=== PATIENT | female | born 1930 | race Caucasian/White ===

== ENCOUNTER 2016-11-19 05:10 | Inpatient (IN) ==
[2016-11-14 14:04] LABS: Appearance,Urine CLEAR; Bilirubin,Urine NEG (NEG); Color,Urine STRAW; Glucose,Urine (UA) NEGATIVE (NEG); Leukocyte Esterase,Urine NEG /uL (NEG); Nitrate,Urine NEG (NEG); Protein,Urine NEG (NEG); Urine Blood NEG mg/dL (<0.03); Urobilinogen,Urine NEG (NEG)
[2016-11-14 14:24] LABS: Basophils # (Auto) 0 K/mcL (0.0-0.3); Basophils % (Auto) 0.3 % (0.0-2.0); Eosinophils # (Auto) 0.2 K/mcL (0.0-0.7); Eosinophils % (Auto) 2.7 % (0.0-7.0); Granulocytes % (Auto) 71.7 % (38.0-78.0); Lymphocytes # (Auto) 1.5 K/mcL (1.5-4.8); Lymphocytes % (Auto) 16.9 % (15.5-49.0); Mean Cell Volume 94.3 fL (80.0-100.0); Mean Corpuscular HGB Conc 32.8 g/dL (31.0-36.0); Mean Corpuscular Hemoglobin 30.9 pg (26.0-34.0); Monocytes # (Auto) 0.8 K/mcL (0.1-0.9); Monocytes % (Auto) 8.4 % (1.0-12.0); Platelet Count 309 K/mcL (140-440); RBC 4.63 M/mcL (4.00-5.20); Red Cell Distribution Width 14.7 % (11.5-14.5)
[2016-11-14 14:39] LABS: Blood Urea Nitrogen 35 mg/dl (8-23)
[~2016-11-19 05:10] MED LIST: CELECOXIB 200 MG CAPSULE PO SCH; PREGABALIN 75 MG CAPSULE PO SCH; ceFAZolin 1 GM VIAL IV SCH; oxyCODONE 10 MG TAB.ER.12H PO SCH
[2016-11-19] MEDS ORDERED: ePHEDrine 50 MG/ML AMPUL IV ONE (07:35)
[2016-11-19] MEDS ORDERED: PROPOFOL 200 MG/20 ML VIAL IV ONE (07:35)
[2016-11-19] MEDS ORDERED: ONDANSETRON 4 MG/2 ML VIAL IV ONE (07:35)
[2016-11-19] MEDS ORDERED: TRANEXAMIC ACID 1,000 MG/10 ML VIAL IV ONE (07:35)
[2016-11-19] MEDS ORDERED: PHENYLEPHRINE 10 MG/ML VIAL IV ONE (07:35)
[2016-11-19] MEDS ORDERED: ONDANSETRON 4 MG/2 ML VIAL IV PRN ×2 (08:39→09:19)
[2016-11-19] MEDS ORDERED: BENZOCAINE/MENTHOL 1 LOZENGE PO PRN ×2 (08:39→09:19)
[2016-11-19] MEDS ORDERED: ePHEDrine 50 MG/ML AMPUL IV PRN (08:39)
[2016-11-19] MEDS ORDERED: diphenhydrAMINE 50 MG/ML VIAL IV PRN (08:39)
[2016-11-19] MEDS ORDERED: NALOXONE HCL 0.4 MG/ML VIAL IV PRN (08:39)
[2016-11-19] MEDS ORDERED: IPRATROPIUM/ALBUTEROL 3 ML AMPUL.NEB NEB PRN (08:39)
[2016-11-19] MEDS ORDERED: FLUMAZENIL 0.1 MG/ML ML IV PRN (08:39)
[2016-11-19] MEDS ORDERED: METOPROLOL TARTRATE 5 MG/5 ML VIAL IV PRN (08:39)
[2016-11-19] MEDS ORDERED: METHOCARBAMOL 1,000 MG/10 ML VIAL IV PRN (08:39)
[2016-11-19] MEDS ORDERED: GENTAMICIN SULFATE 800 MG/20 ML VIAL IR ONE (08:39)
[2016-11-19] MEDS ORDERED: ATROPINE SULFATE 0.4 MG/ML VIAL IV PRN (08:39)
[2016-11-19] MEDS ORDERED: HYDROmorphone 2 MG/ML SYRINGE IV PRN ×2 (08:39→09:19)
[2016-11-19] MEDS ORDERED: LACTATED RINGERS 1,000 ML IV SCH (08:45)
[2016-11-19] MEDS ORDERED: MAGNESIUM HYDROXIDE 30 ML ORAL.SUSP PO PRN (09:19)
[2016-11-19] MEDS ORDERED: POLYETHYLENE GLYCOL 3350 17 GM PACKET PO PRN (09:19)
[2016-11-19] MEDS ORDERED: FLEETS ADULT ENEMA PR PRN (09:19)
[2016-11-19] MEDS ORDERED: TRANEXAMIC ACID 1,000 MG/10 ML VIAL IV SCH (09:19)
[2016-11-19] MEDS ORDERED: BISACODYL 10 MG SUPP.RECT PR PRN (09:19)
[2016-11-19] MEDS ORDERED: METHOCARBAMOL 750 MG TABLET PO PRN (09:19)
--- NOTE | 2016-11-19 09:19 | Brief Operative Note ---
Date of procedure: 11/19/16 Pre-op diagnosis: right hip oa Post-op diagnosis: same Procedure: right total hip arthroplasty Grafts/Implants: Yes Anesthesia: spinal Complications: none Surgeon: Nick Bowman Gas Regulator Repairer: Pj Ayoub Estimated blood loss (cc): 150 Specimens Removed/Pathology: none sent Condition: stable Disposition: PACU
[2016-11-19] MEDS: fentaNYL 100 MCG/2 ML VIAL IV PRN ×4 (09:59→10:17)
[2016-11-19] MEDS: LACTATED RINGERS 1,000 ML IV SCH ×2 (10:54→17:06)
--- NOTE | 2016-11-19 11:45 | XRay Report ---
CLINICAL INFORMATION: Reason for Exam:Post-op Total Hip COMPARISON: None. FINDINGS: ] [Right total hip prostheses is anatomically aligned. No osseous abnormalities. Left hip and both SI joints show minimal degeneration. IMPRESSION: Negative Interpreted and Authenticated by: Nick Wade 11/19/16
[2016-11-19] MEDS: 0.9 % SODIUM CHLORIDE 1,000 ML IV SCH ×2 (11:57→17:55)
[2016-11-19] MEDS: 0.9 % SODIUM CHLORIDE 10 ML SYRINGE IV SCH ×2 (13:57→23:14)
[2016-11-19] MEDS: ceFAZolin 1 GM VIAL IV SCH ×2 (15:27→23:13)
[2016-11-19] MEDS: OMEPRAZOLE 20 MG CAPSULE PO SCH (17:05)
[2016-11-19] MEDS: DOCUSATE SODIUM 100 MG CAPSULE PO SCH (19:37)
[2016-11-19] MEDS: FLECAINIDE 50 MG TABLET PO SCH (19:37)
[2016-11-19] MEDS: HYDROcodone/APAP 10/325MG TABLET PO PRN ×2 (19:37→23:14)
[2016-11-19] MEDS: SENNOSIDES 1 TABLET PO SCH (19:37)
[2016-11-19] MEDS: METOPROLOL TARTRATE 50 MG TABLET PO SCH (19:37)
[2016-11-19] MEDS ORDERED: WARFARIN 2.5 MG TABLET PO SCH (21:00)
[2016-11-20] MEDS: 0.9 % SODIUM CHLORIDE 1,000 ML IV SCH ×3 (03:11→17:34)
[2016-11-20] MEDS: HYDROcodone/APAP 10/325MG TABLET PO PRN ×3 (05:36→21:48)
[2016-11-20] MEDS: 0.9 % SODIUM CHLORIDE 10 ML SYRINGE IV SCH ×3 (05:38→21:48)
--- NOTE | 2016-11-20 06:58 | Orthopedic Progress Note ---
Subjective Patient information: Note initiated : 11/20/16 at 6:56 am Service Date, if different from initiated Date: [] Patient: Taniya Reynoso 86 y/o F admitted on 11/19/16 for Right Total Hip Arthroplasty. Chief Complaint: [] Interval history: Doing well, up to the bathroom. pain ok Objective Vital signs: Vital Signs Temp Pulse Resp BP BP Pulse Ox 11/20/16 04:00 97.6 F 66 12 104/65 92 11/20/16 00:00 97.7 F 64 12 89/55 92 11/19/16 19:43 98.2 F 68 12 95/60 91 11/19/16 15:21 98.0 F 16 95 11/19/16 13:20 111/64 97 11/19/16 12:32 111/68 96 11/19/16 12:19 104/60 96 11/19/16 12:04 98/47 97 11/19/16 11:47 101/69 96 11/19/16 11:32 114/75 96 11/19/16 11:15 104/70 96 11/19/16 10:45 109/71 97 11/19/16 10:30 97.6 F 16 107/60 99 11/19/16 10:26 55 L 12 116/53 99 11/19/16 10:15 54 L 12 116/53 99 11/19/16 10:00 57 L 12 116/53 92 11/19/16 09:43 96.9 F L 60 16 117/59 98 Intake and Output 11/19/16 11/20/16 11/20/16 21:59 05:59 13:59 Intake Total 120 / 120 200 / 200 Output Total 250 / 250 Balance 120 / 120 -50 / -50 Intake: Oral 120 / 120 200 / 200 Output: Void Amount 250 / 250 Other: Meal Dinner Percent of Meal Consumed 75% Feeding Ability Independent # Voids 1 Weight 210 lb 8 oz Intake & Output: Intake & Output 11/19/16 11/20/16 11/20/16 21:59 05:59 13:59 Intake Total 120 / 120 200 / 200 Output Total 250 / 250 Balance 120 / 120 -50 / -50 Weight 210 lb 8 oz Intake: Oral 120 / 120 200 / 200 Output: Void Amount 250 / 250 Other: Meal Dinner Percent of Meal Consumed 75% Feeding Ability Independent # Voids 1 Incision: Yes healing Incision clean and dry: Yes Dressing: Yes clean, Yes dry, Yes intact Weight bearing status: full Neurological exam IM: Yes abnormal gait, Yes alert, Yes oriented X3, Yes motor sensory intact, Yes neurovascular intact Extremities exam IM: No calf tenderness, Yes Foot pink and warm, Yes neurovascular intact - Labs CBC & BMP: 11/20/16 05:20 11/14/16 12:23 Labs: Orthopedic Labs 11/19/16 11/14/16 05:24 12:23 PT 17.8 H 32.0 H INR 1.4 H 3.0 H 11/20/16 11/14/16 05:20 12:23 Hgb 10.8 L 14.3 Hct 31.8 L 43.7 Assessment and Plan (1) Hip osteoarthritis Assessment: pod 1 s/p right nahomy Plan: PT pain control dvt prophylaxis - coumadin (lovenox bridge) dressing change tomorrow d/c plan - rehab friday Status: Acute
[2016-11-20] MEDS: OMEPRAZOLE 20 MG CAPSULE PO SCH ×2 (07:09→16:47)
[2016-11-20] MEDS: LEVOTHYROXINE SODIUM 112 MCG TABLET PO SCH (07:09)
[2016-11-20] MEDS ORDERED: DOCUSATE SODIUM 100 MG CAPSULE PO SCH (09:00)
[2016-11-20] MEDS: SPIRONOLACTONE 25 MG TABLET PO SCH (09:09)
[2016-11-20] MEDS: ESCITALOPRAM 10 MG TABLET PO SCH (09:10)
[2016-11-20] MEDS: METOPROLOL TARTRATE 50 MG TABLET PO SCH ×3 (09:10→21:47)
[2016-11-20] MEDS: FUROSEMIDE 40 MG TABLET PO SCH (09:10)
[2016-11-20] MEDS: FLECAINIDE 50 MG TABLET PO SCH ×2 (09:10→21:48)
[2016-11-20] MEDS: ENOXAPARIN 40 MG/0.4 ML SYRINGE SQ SCH (09:10)
[2016-11-20] MEDS: DOCUSATE SODIUM 100 MG CAPSULE PO SCH ×2 (09:10→21:48)
[2016-11-20] MEDS: CHLORTHALIDONE 25 MG TABLET PO SCH (09:36)
[2016-11-20] MEDS ORDERED: WARFARIN 5 MG TABLET PO SCH (14:00)
[2016-11-20] MEDS: SENNOSIDES 1 TABLET PO SCH (21:47)
[2016-11-21] MEDS: 0.9 % SODIUM CHLORIDE 1,000 ML IV SCH (01:53)
[2016-11-21] MEDS: HYDROcodone/APAP 10/325MG TABLET PO PRN (06:13)
[2016-11-21] MEDS: 0.9 % SODIUM CHLORIDE 10 ML SYRINGE IV SCH ×3 (06:13→21:50)
--- NOTE | 2016-11-21 06:18 | Orthopedic Progress Note ---
Subjective Patient information: Note initiated : 11/21/16 at 6:17 am Service Date, if different from initiated Date: [] Patient: Taniya Reynoso 86 y/o F admitted on 11/19/16 for Right Total Hip Arthroplasty. Chief Complaint: [] Interval history: doing well. pain under control. mobilizing Objective Vital signs: Vital Signs Temp Pulse Resp BP Pulse Ox 11/21/16 04:00 97.7 F 70 20 107/60 94 11/20/16 23:41 97.3 F 74 20 101/60 94 11/20/16 20:00 97.2 F 78 16 108/68 94 11/20/16 11:00 97.6 F 12 97/58 93 11/20/16 07:33 97.1 F 12 95/58 93 Intake and Output 11/20/16 11/21/16 11/21/16 21:59 05:59 13:59 Intake Total 240 / 240 Output Total 50 / 50 Balance -50 / -50 240 / 240 Intake: Oral 240 / 240 Output: Void Amount 50 / 50 Other: # Voids 1 Weight 215 lb Intake & Output: Intake & Output 11/20/16 11/21/16 11/21/16 21:59 05:59 13:59 Intake Total 240 / 240 Output Total 50 / 50 Balance -50 / -50 240 / 240 Weight 215 lb Intake: Oral 240 / 240 Output: Void Amount 50 / 50 Other: # Voids 1 Incision: Yes healing Incision clean and dry: Yes Dressing: Yes clean, Yes dry, Yes intact Weight bearing status: full Neurological exam IM: Yes alert, Yes normal gait, Yes oriented X3, Yes motor sensory intact, Yes neurovascular intact Extremities exam IM: No calf tenderness, Yes Foot pink and warm, Yes neurovascular intact - Labs CBC & BMP: 11/21/16 03:41 11/14/16 12:23 Labs: Orthopedic Labs 11/20/16 11/19/16 11/14/16 07:20 05:24 12:23 PT 17.4 H 17.8 H 32.0 H INR 1.4 H 1.4 H 3.0 H 11/21/16 11/20/16 11/14/16 03:41 05:20 12:23 Hgb 10.2 L 10.8 L 14.3 Hct 29.9 L 31.8 L 43.7 Assessment and Plan (1) Hip osteoarthritis Assessment: pod 2 s/p right nahomy Plan: PT pain control dvt prophylaxis - coumadin (lovenox bridge) dressing change tomorrow d/c plan - rehab friday Status: Acute
--- NOTE | 2016-11-21 06:24 | Discharge Summary ---
Ortho Discharge - [facility] - Patient Instructions Diet: Regular Diet Activity: ambulate with assistive device, weight bearing as tolerated Total Hip Protocol: Follow activity instructions as provided by Physical Therapy. Dressing Care: May shower in 2 days - Problem Maintenance (1) Hip osteoarthritis Status: Acute - Follow Up Plan Disposition: [facility] Prognosis: Good Rehab Potential: Good Overall status at discharge: patient is progressing back to baseline - Orders For Discharge Prescriptions: Docusate Sodium [Colace] 100 mg PO BID #60 capsule HYDROcodone/APAP 10/325MG [[place] 10/325Mg] 1 - 2 tab PO Q4HP PRN #60 tablet PRN Reason: Pain
[2016-11-21] MEDS: LEVOTHYROXINE SODIUM 112 MCG TABLET PO SCH (07:05)
[2016-11-21] MEDS: OMEPRAZOLE 20 MG CAPSULE PO SCH ×2 (07:05→16:41)
[2016-11-21] MEDS: FLECAINIDE 50 MG TABLET PO SCH ×2 (09:39→21:50)
[2016-11-21] MEDS: CHLORTHALIDONE 25 MG TABLET PO SCH (09:39)
[2016-11-21] MEDS: METOPROLOL TARTRATE 50 MG TABLET PO SCH ×2 (09:40→21:50)
[2016-11-21] MEDS: DOCUSATE SODIUM 100 MG CAPSULE PO SCH ×2 (09:40→21:50)
[2016-11-21] MEDS: ENOXAPARIN 40 MG/0.4 ML SYRINGE SQ SCH (09:40)
[2016-11-21] MEDS: ESCITALOPRAM 10 MG TABLET PO SCH (09:40)
[2016-11-21] MEDS: SPIRONOLACTONE 25 MG TABLET PO SCH (09:40)
[2016-11-21] MEDS: FUROSEMIDE 40 MG TABLET PO SCH (09:41)
[2016-11-21] MEDS ORDERED: WARFARIN 5 MG TABLET PO ONE (14:00)
[2016-11-21] MEDS: SENNOSIDES 1 TABLET PO SCH (21:50)
[2016-11-22] MEDS: HYDROcodone/APAP 10/325MG TABLET PO PRN ×2 (04:40→12:27)
[2016-11-22] MEDS: 0.9 % SODIUM CHLORIDE 10 ML SYRINGE IV SCH (05:45)
--- NOTE | 2016-11-22 06:41 | Orthopedic Progress Note ---
Subjective Patient information: Note initiated : 11/22/16 at 6:39 am Service Date, if different from initiated Date: [] Patient: Taniya Reynoso 86 y/o F admitted on 11/19/16 for Right Total Hip Arthroplasty. Chief Complaint: [] Interval history: Pt doing well this morning. States that PT is going well. She was having some mild pain with her exercises and increased her pain medication slightly to 10mg. Her pain is well under control at this point. She feels ready to transfer to a SNF today. She has no other questions or concerns at this time. Objective Vital signs: Vital Signs Temp Pulse Resp BP BP Pulse Ox 11/22/16 04:00 97.2 F 71 18 104/67 96 11/21/16 23:43 98.4 F 59 L 16 115/74 96 11/21/16 20:00 98.0 F 77 16 113/72 94 11/21/16 15:27 98 F 16 109/66 95 11/21/16 11:40 98.2 F 20 114/71 95 11/21/16 08:00 96 11/21/16 06:52 98 F 20 108/69 96 Intake and Output 11/21/16 11/22/16 11/22/16 21:59 05:59 13:59 Intake Total 450 / 450 600 / 600 Output Total 400 / 400 750 / 750 Balance 50 / 50 -150 / -150 Intake: Oral 450 / 450 600 / 600 Output: Void Amount 400 / 400 750 / 750 Other: # Voids 2 1 Weight 215 lb 8 oz Intake & Output: Intake & Output 11/21/16 11/22/16 11/22/16 21:59 05:59 13:59 Intake Total 450 / 450 600 / 600 Output Total 400 / 400 750 / 750 Balance 50 / 50 -150 / -150 Weight 215 lb 8 oz Intake: Oral 450 / 450 600 / 600 Output: Void Amount 400 / 400 750 / 750 Other: # Voids 2 1 Incision: Yes clean and dry Incision clean and dry: Yes Dressing: Yes clean, Yes dry, Yes intact Weight bearing status: as tolerated Neurological exam IM: Yes abnormal gait, Yes alert, Yes oriented X3, Yes neurovascular intact Extremities exam IM: No calf tenderness, No pedal edema, No tenderness, No Glenn 's sign, Yes Foot pink and warm - Periperhal Pulses Peripheral pulses: 2+: dorsalis pedis (L), dorsalis pedis (R) - Labs CBC & BMP: 11/22/16 05:05 11/14/16 12:23 Labs: Orthopedic Labs 11/22/16 11/21/16 11/20/16 05:05 08:07 07:20 PT Pending 18.3 H 17.4 H INR Pending 1.5 H 1.4 H 11/19/16 11/14/16 05:24 12:23 PT 17.8 H 32.0 H INR 1.4 H 3.0 H 11/22/16 11/21/16 11/20/16 05:05 03:41 05:20 Hgb 10.0 L 10.2 L 10.8 L Hct 29.3 L 29.9 L 31.8 L 11/14/16 12:23 Hgb 14.3 Hct 43.7 Assessment and Plan (1) Hip osteoarthritis assessment: pod #3 s/p right [facility]ACH[facility] plan: d/c planning to SNF today continue PT/OT DVT prophylaxis pain control please follow up with PA in office 10-14 days post surgical date Status: Acute
[2016-11-22] MEDS: OMEPRAZOLE 20 MG CAPSULE PO SCH (06:55)
[2016-11-22] MEDS: LEVOTHYROXINE SODIUM 112 MCG TABLET PO SCH (06:55)
[2016-11-22] MEDS: CHLORTHALIDONE 25 MG TABLET PO SCH (10:51)
[2016-11-22] MEDS: SPIRONOLACTONE 25 MG TABLET PO SCH (10:52)
[2016-11-22] MEDS: METOPROLOL TARTRATE 50 MG TABLET PO SCH (10:52)
[2016-11-22] MEDS: ENOXAPARIN 40 MG/0.4 ML SYRINGE SQ SCH (10:53)
[2016-11-22] MEDS: ESCITALOPRAM 10 MG TABLET PO SCH (10:53)
[2016-11-22] MEDS: FLECAINIDE 50 MG TABLET PO SCH (10:53)
[2016-11-22] MEDS: FUROSEMIDE 40 MG TABLET PO SCH (10:53)
[2016-11-22] MEDS: DOCUSATE SODIUM 100 MG CAPSULE PO SCH (10:53)
== END 2016-11-22 12:44 | DRG 470 ==
LOC: MEDSUR 05:10
PROVIDERS: ADMIT Orthopaedic Surgery Sports Medicine; ATTEND Orthopaedic Surgery Sports Medicine